=== PATIENT | male | born 1935 | race African-American/Black ===

== ENCOUNTER 2017-07-13 08:36 | Inpatient (IN) | payer MEDICARE ==
[~2017-07-13] VITALS: Ht 170.2 cm; Wt 98.2 kg
[2017-07-13 09:02] LABS: BASOPHILS 0.1 % (0-2); EOSINOPHILS 0.1 % (0-7); HEMATOCRIT 44.9 % (42.0-54.0); HEMOGLOBIN 13.9 g/dL (13.5-17.5); IMMATURE GRANULOCYTES 0.2 % (0-5); LYMPHOCYTES 9.1 % (15-50); MCH 29.2 pg (26.0-34.0); MCV 94.3 fL (80.0-100.0); MEAN PLATELET VOLUME 12.4 fL (7.4-10.4); MONOCYTES 11.9 % (2-11); NEUTROPHILS 78.6 % (40-80); RBC 4.76 10x6/uL (4.20-6.10); RDW 12.9 % (11.5-14.5)
[2017-07-13 09:03] LABS: PLATELET COUNT 144 10x3/uL (130-400)
[2017-07-13 09:15] LABS: ALBUMIN 3.7 g/dL (3.4-5.0); ALKALINE PHOSPHATASE 79 U/L (46-116); ALT (SGPT) 67 U/L (10-68); BILIRUBIN - TOTAL 1.26 mg/dL (0.2-1.3); CALC OSMOLALITY 285 mosm/kg (275-300); CALCIUM 8.3 mg/dL (8.5-10.1); CARBON DIOXIDE 29.3 mmol/L (21.0-32.0); CHLORIDE - SERUM 103 mmol/L (98-107); GLUCOSE 177 mg/dL (74-106); POTASSIUM - SERUM 3.3 mmol/L (3.5-5.1); PROTEIN - SERUM 7.1 g/dL (6.4-8.2); SODIUM 141 mmol/L (136-145); UREA NITROGEN 15 mg/dL (7-18); eGFR NON AFRICAN AMERICAN 83 mL/min (90-120)
[2017-07-13 09:41] LABS: CKMB 2.8 U/L (0.0-3.6); CREATINE KINASE 154 UL (21-232); PRO BNP 3987 pg/mL (0-125); TROPONIN-I 0.041 ng/mL (0.000-0.060)
--- NOTE | 2017-07-13 13:05 | NUR ---
RECEIVED PT FROM ER TO ROOM 2128 VIA W/C AAOX4 RESP UNLABORED O2 ON 4LPM NC SKIN W/D COLOR WNL TELEMETRY APPLIED SR WITH PVCs RATE 80 NAD NOTED
[2017-07-13 13:17] VITALS: BP 150/69; Ht 170.2 cm; Wt 98.2 kg
[2017-07-13] MEDS ORDERED: COREG6.25 MG PO (13:36)
[2017-07-13] MEDS ORDERED: IBUPROFEN600 MG PO (13:37)
[2017-07-13 16:12] VITALS: BP 116/66
--- NOTE | 2017-07-13 19:45 | NUR ---
PT RESTING IN BEDSIDE CHAIR. ALERT/ORIENTED. PIV SALINE LOCKED TO RIGHT HAND. DENIES PAIN OR DISCOMFORT. O2 @ 4L/NC. SR PER TELEMETRY. PEN TESTER STATES PT JUST HAD A 4 BEAT RUN OF VTACH. ASSESSED PT AND WILL MONITOR.
[2017-07-13 21:46] VITALS: BP 113/59
--- NOTE | 2017-07-13 21:55 | NUR ---
BEDTIME MEDS GIVEN. PT SITTING UP IN CHAIR. NO NEEDS. CALL LIGHT IN REACH.
[2017-07-14] VITALS: BP 108/64
--- NOTE | 2017-07-14 02:14 | NUR ---
PT RESTING IN BED WITH EYES CLOSED. RESPS EVEN/NONLABORED WITH O2 @ 4LNC. CALL LIGHT IN REACH.
[2017-07-14 03:25] LABS: BASOPHILS 0.1 % (0-2); EOSINOPHILS 0 % (0-7); HEMATOCRIT 40.6 % (42.0-54.0); HEMOGLOBIN 12.7 g/dL (13.5-17.5); IMMATURE GRANULOCYTES 0.3 % (0-5); MCH 29.1 pg (26.0-34.0); MCHC 31.3 g/dL (31.0-37.0); MCV 92.9 fL (80.0-100.0); MEAN PLATELET VOLUME 13.1 fL (7.4-10.4); MONOCYTES 11.9 % (2-11); NEUTROPHILS 77.7 % (40-80); PLATELET COUNT 130 10x3/uL (130-400); RBC 4.37 10x6/uL (4.20-6.10); RDW 12.7 % (11.5-14.5); WBC 10.7 10x3/uL (4.8-10.8)
[2017-07-14 03:59] LABS: CALC OSMOLALITY 282 mosm/kg (275-300); CALCIUM 7.9 mg/dL (8.5-10.1); CARBON DIOXIDE 32.8 mmol/L (21.0-32.0); CHLORIDE - SERUM 103 mmol/L (98-107); GLUCOSE 137 mg/dL (74-106); MAGNESIUM - SERUM 1.9 mg/dL (1.8-2.4); POTASSIUM - SERUM 3.4 mmol/L (3.5-5.1); SODIUM 140 mmol/L (136-145); UREA NITROGEN 19 mg/dL (7-18); eGFR NON AFRICAN AMERICAN 76 mL/min (90-120)
[2017-07-14 05:33] VITALS: BP 128/70
--- NOTE | 2017-07-14 07:31 | NUR ---
PATIENT IS IN BED RESTING AT THIS TIME. O2 AT 4L PER NASAL CANNULA. NO SIGNS OR SYMPTOMS OF DISTRESS OR DISCOMFORT ARE NOTED. CALL LIGHT AND WATER ARE WITHIN REACH.
[2017-07-14 08:52] VITALS: BP 126/73
--- NOTE | 2017-07-14 09:52 | NUR ---
RESTS WITH EYES CLOSED. RESP UL ON . IV PATENT. CALL LIGHT IN REACH. WILL CONT. PLAN OF CARE.
[2017-07-14 12:39] VITALS: BP 128/88
[2017-07-14 16:27] VITALS: BP 128/79
--- NOTE | 2017-07-14 17:57 | NUR ---
PATIENT IN BED RESTING AT THIS TIME. NO COMPLAINTS OR CONCERNS ARE VOICED AT THIS TIME. PATIENT SINUS RHYTHM ON TELEMETRY WITH RATE OF 76 BPM. RESPIRATIONS EQUAL AND NON-LABORED. NO SIGNS OF DISTRESS OR DISCOMFORT NOTED AT THIS TIME.
--- NOTE | 2017-07-14 19:35 | NUR ---
ASSESSMENT COMPLETE, PT A&O, SITTING UP IN CHAIR. IV TO RIGHT HAND SL, SITE CLEAN AND DRY. PT DENIES PAIN OR NEEDS, CL IN REACH, WILL CONT TO MONITOR.
[2017-07-14 21:22] VITALS: BP 131/73
--- NOTE | 2017-07-14 21:38 | NUR ---
HS MEDS GIVEN WITH FRESH ICE WATER, PT DENIES PAIN OR NEEDS, CL IN REACH.
[2017-07-15 02:14] VITALS: BP 111/74
[2017-07-15 05:33] LABS: BASOPHILS 0.1 % (0-2); HEMATOCRIT 46.3 % (42.0-54.0); HEMOGLOBIN 14.1 g/dL (13.5-17.5); IMMATURE GRANULOCYTES 0.1 % (0-5); LYMPHOCYTES 23.3 % (15-50); MCH 28.9 pg (26.0-34.0); MCHC 30.5 g/dL (31.0-37.0); MEAN PLATELET VOLUME 12.5 fL (7.4-10.4); MONOCYTES 13.5 % (2-11); PLATELET COUNT 136 10x3/uL (130-400); RBC 4.88 10x6/uL (4.20-6.10)
[2017-07-15 05:54] LABS: ANION GAP 7.2 mmol/L (8-16); CALCIUM 8.3 mg/dL (8.5-10.1); CARBON DIOXIDE 36.1 mmol/L (21.0-32.0); CREATININE - SERUM 1.1 mg/dL (0.6-1.3); MAGNESIUM - SERUM 1.8 mg/dL (1.8-2.4); PHOSPHOROUS 4.1 mg/dL (2.5-4.9)
[2017-07-15 05:55] VITALS: BP 141/85
[2017-07-15 05:55] LABS: MCV 94.9 fL (80.0-100.0); WBC 7.9 10x3/uL (4.8-10.8)
[2017-07-15 06:02] LABS: POTASSIUM - SERUM 3.3 mmol/L (3.5-5.1)
--- NOTE | 2017-07-15 08:56 | NUR ---
AM ROUNDS - PT IS IN BED AND AWAKE AT THIS TIME. MONITOR SHOWING SB, HR 58. O2 AT 4L VIA NC. IV TO RIGHT HAND, SL. PT IS A&O. BED AT LOWEST POSITION. CALL AQUINO IN USE/REACH. SIDE RAILS UP X2. WILL CONTINUE TO MONITOR
[2017-07-15 09:48] VITALS: BP 118/54
[2017-07-15 12:26] VITALS: BP 139/82
--- NOTE | 2017-07-15 18:10 | NUR ---
PT SITTING UP IN A CHAIR AT THIS TIME. NO NEEDS. WILL CONTINUE TO MONITOR
[2017-07-15 21:50] VITALS: BP 156/86
--- NOTE | 2017-07-15 23:08 | NUR ---
PATIENT IS UP IN CHAIR, DRINKING COFFEE AND WATCHING TV. HE HAS HAD SOME LOOSE STOOLS TODAY. URINE IN URINAL IS CLEAR YELLOW. DENIES ANY PAIN AT THIS TIME.
[2017-07-16 00:20] VITALS: BP 133/76
--- NOTE | 2017-07-16 02:53 | NUR ---
PT RESTING COMFORTABLY, NO NEEDS. CONTINUE TO MONITOR CLOSELY.
--- NOTE | 2017-07-16 03:17 | NUR ---
RESTING QUIETLY. OXYGEN IN PLACE . LASIX ADMINISTERED THROUGH IN IN RIGHT HAND. IV SALINE LOCKED. DENIES ANY PAIN AT THIS TIME. BED IN LOW POSITION, CALL LIGHT IN REACH.
[2017-07-16 04:33] VITALS: BP 136/68
[2017-07-16 05:25] LABS: BASOPHILS 0.3 % (0-2); EOSINOPHILS 1.9 % (0-7); HEMATOCRIT 45.4 % (42.0-54.0); HEMOGLOBIN 13.9 g/dL (13.5-17.5); IMMATURE GRANULOCYTES 0.2 % (0-5); LYMPHOCYTES 28.3 % (15-50); MCHC 30.6 g/dL (31.0-37.0); MCV 94.6 fL (80.0-100.0); MEAN PLATELET VOLUME 12.8 fL (7.4-10.4); MONOCYTES 14.9 % (2-11); NEUTROPHILS 54.4 % (40-80); PLATELET COUNT 116 10x3/uL (130-400); RDW 12.8 % (11.5-14.5)
[2017-07-16 05:34] LABS: WBC 5.8 10x3/uL (4.8-10.8)
[2017-07-16 05:55] LABS: CALC OSMOLALITY 286 mosm/kg (275-300); CALCIUM 8.7 mg/dL (8.5-10.1); CARBON DIOXIDE 35.3 mmol/L (21.0-32.0); CHLORIDE - SERUM 102 mmol/L (98-107); CREATININE - SERUM 0.9 mg/dL (0.6-1.3); GLUCOSE 113 mg/dL (74-106); MAGNESIUM - SERUM 1.9 mg/dL (1.8-2.4); SODIUM 143 mmol/L (136-145); UREA NITROGEN 15 mg/dL (7-18); eGFR NON AFRICAN AMERICAN 86 mL/min (90-120)
[2017-07-16 08:21] VITALS: BP 126/77
--- NOTE | 2017-07-16 09:45 | NUR ---
UP IN CHAIR WITH CALL LIGHT IN REACH. RESP UL . IV PATENT. WILL MONITOR NEEDS.
--- NOTE | 2017-07-16 10:24 | NUR ---
ASSESSMENT DONE. DENIES NEEDS.
[2017-07-16 11:34] VITALS: BP 128/71
[2017-07-16] MEDS ORDERED: LISINOPRIL10 MG PO (11:54)
[2017-07-16] MEDS ORDERED: OMNICEF300 MG PO (11:56)
[2017-07-16] MEDS ORDERED: ALBUTEROL2.5 MG/3 M INH (14:44)
--- NOTE | 2017-07-16 16:33 | NUR ---
Patient Name: ERICA MEYERS Admission Status: ER Accout number: [id number] Admission Date: 07-13-2017 : 1935 Admission Diagnosis:SHORTNESS OF BREATH Attending: ROSALIND FLORES Current LOS: 3 Anticipated DC Date: 07-16-2017 Planned Disposition: Home Primary Insurance: MEDICARE A & B Discharge Planning Comments: * Is the patient Alert and Oriented? Yes 0 * How many steps to enter\exit or inside your home? 3 0 * PCP DR. SANIA [place] 0 * [facility] * Preadmission Environment Home with Family 0 * ADLs Independent 0 * Equipment Rolling Walker 0 * Other Equipment NO MEDICAL EQUIPMENT PROVIDER PREFERENCE 0 * List name and contact numbers for known caregivers / representatives who currently or will assist patient after discharge: ALDAIR PEÑA, SISTER, 0 * Community resources currently utilized None 0 * Please name any agencies selected above. NONE 0 * Additional services required to return to the preadmission environment? No 0 * Can the patient safely return to the preadmission environment? Yes 0 * Has this patient been hospitalized within the prior 30 days at any hospital? No 0 CM MET WITH PT AND SISTER IN ROOM TO DISCUSS DISCHARGE PLANNING AND NEEDS. PT REPORTS LIVING AT HOME INDEPENDENTLY WITH A FRIEND. PT HAS ROLLING WALKER WITH NO MEDICAL EQUIPMENT PROVIDER PREFERENCE. PT PAS NO OUTSIDE SERVICES ASSISTING IN THE HOME. CM DISCUSSED AVAILABILITY OF HOME HEALTH, REHAB SERVICES AND MEDICAL EQUIPMENT. PT DENIES DISCHARGE NEEDS, REPORTS HIS SISTER IS HERE TO PICK HIM UP FOR DISCHARGE HOME. IMPORTANT MESSAGE FROM MEDICARE PROVIDED AND EXPLAINED. PT HAS NO PROVIDER PREFERENCE FOR THE NEBULIZER; CM CALLED [facility], , SPOKE TO DANIEL WHO WILL ARRANGE HOME DELIVERY OF NEBLUIZER AFTER GETTING DETAILED WRITTEN ORDER SIGNED BY DR. MONET. CM FAXED ORDER AND CHART INFORMATION TO [facility] AT [phone]. CM SPOKE TO RESPIRATORY THERAPIST WHO REPORTS THAT PT IS 95% ON ROOM AIR AND DOES NOT QUALIFY FOR HOME / PORTABLE OXYGEN. [facility] TO ARRANGE HOME DELIVERY OF NEBULIZER. NO FURHTER NEEDS IDENTIFIED. Flame Cutting Machine Operator: Zackery Chandler
--- NOTE | 2017-07-16 17:21 | NUR ---
DC GIVEN TO PT
--- NOTE | 2017-07-16 18:30 | NUR ---
DC HOME PER PERSONAL CAR
--- NOTE | 2017-07-22 12:15 | CN ---
PATIENT NAME:ERICA MEYERS SR MEDICAL RECORD: [id number] : 37 LOCATION:D. D.2129 ADMIT DATE: 07/13/17 ACCOUNT: [id number] CONSULTING PHYSICIAN: LINUS NIETO MD REFERRING PHYSICIAN: ROSALIND FLORES DO DATE OF CONSULTATION: 07/16/2017 DIAGNOSES: 1. Pneumonia. 2. Cardiomyopathy. 3. Heart failure. 4. Chronic systolic dysfunction. 5. Hypertension. HISTORY OF PRESENT ILLNESS: This is a gentleman who states that he has had no previous cardiac history, seen Dr. Sim and he does not remember exactly what she told him about his heart. This was approximately 6 months ago. He presents with shortness of breath, found to have right upper lobe pneumonia. He had an echocardiogram revealing an ejection fraction 20%, dilated cardiomyopathy, no discrete wall motion abnormalities, global hypokinesis throughout all segments. He denies any heart failure symptomatology prior to being short of breath with the pneumonia. Denies any chest pain or chest discomfort. He has had no cardiac workup in the past other than the visit to Dr. Sim. PHYSICAL EXAMINATION: GENERAL APPEARANCE: Well-nourished, well-developed, appears stated age. Level of distress, comfortable. PSYCHIATRIC: Mental status, alert, normal affect. Orientation, oriented to time, place and person. EYES: Lids and conjunctiva, noninjected. No discharge, no pallor. ENT: Lips, teeth, gums, normal dentition. Oropharynx, no cyanosis, no pallor. NECK: Carotid arteries, bilateral normal upstroke, no bruits, no thrills. JUGULAR VEINS: No jugular venous pressure or distention. CERVICAL LYMPH NODES: Nontender, nonenlarged. THYROID: Not enlarged. Nontender. No nodules. LUNGS: Respiratory effort, unlabored. CHEST: Normal curvature. No thoracic deformity. No chest wall tenderness. Percussion, resonant. Auscultation, clear. No wheezes, no rales, no rhonchi. CARDIOVASCULAR: Precordial exam, nondisplaced. No heaves or pericardial thrills. Rate and rhythm, regular. Heart sounds, normal S1, normal S2. No S3, no gallop, no rub. Systolic murmur, not heard. Diastolic murmur, not heard. EXTREMITIES: No cyanosis, no edema. Peripheral pulses, full and equal in all extremities, except as noted. No bruits appreciated. ABDOMEN: Soft, nondistended. Normal aorta. No bruit. Nontender. No masses. Liver, nontender, no hepatomegaly. Spleen, nontender, no splenomegaly. MUSCULOSKELETAL: No joint tenderness. No joint swelling. No erythema. NEUROLOGICAL: Normal gait, normal strength, normal tone. SKIN: Warm and dry. REVIEW OF SYSTEMS: The patient reports easy bruising but reports no swollen glands. The patient reports no fever, no night sweats, no significant weight gain, no significant weight loss. No significant exercise tolerance. The patient reports no dry eyes, no irritation, no vision change. Patient reports no difficulty hearing and no ear pain. Patient reports no frequent nose bleeds CONSULT REPORT [id number] ERICA MEYERS SR or nose and sinus problems. Patient reports on arm pain on exertion. No shortness of breath while lying down. No history of heart murmur. Patient reports no cough, no wheezing or coughing up blood. Patient reports no abdominal pain, no vomiting. Normal appetite. No diarrhea and not vomiting blood. No nausea and no constipation. Patient reports no incontinence. No difficulty urinating. No hematuria. No increased frequency. Patient reports no muscle aches. No weakness, no arthralgias, no back pain. No swelling of the extremities. Patient reports no abnormal mole, no jaundice, no rashes. Reports no loss of consciousness. No weakness and no numbness. No seizures, dizziness, or headaches. The patient reports no depression, no sleep disturbance, feeling safe in a relationship and no alcohol abuse. Patient reports on fatigue. Reports no runny nose or sinus pressure. No itching, no hives, and no frequent sneezing. The EKG has widened QRS complex, but no acute ST-T abnormalities. Telemetry has revealed no dysrhythmias. Other than the bradycardia, he was on carvedilol for his blood pressure. At this time, this is on hold due to the bradycardia. OVERALL IMPRESSION: Cardiomyopathy. He does not want a workup at this time for the cardiomyopathy. He only wants to go home. We will make a followup as an outpatient, we would discontinue the carvedilol as he is sinus pia down to the 40s. We will start lisinopril [address] of it for afterload reduction. He is already on Lasix, would change this from IV to p.o. when he goes home. We will see if he follows up for any further workup. TRANSINT:[id number] Voice Confirmation ID: [id number] DOCUMENT ID: [id number] LINUS NIETO MD at 1215 CC: [id number] DICTATION DATE: 07/16/17 0854 WHEAT GROWER: 07/16/17 1201 DIS IN 07/16/17 [place] [id number] [place] [id number]
--- NOTE | 2017-08-07 14:06 | CN ---
PATIENT NAME:ERICA MARTIN SR MEDICAL RECORD: [id number] : 37 LOCATION:. D.2129 ADMIT DATE: 07/13/17 ACCOUNT: [id number] CONSULTING PHYSICIAN: INGE NAVARRO MD REFERRING PHYSICIAN: ZACKARY FLORES DO DATE OF CONSULTATION: 07/13/2017 CONSULT REQUESTING PHYSICIAN: Zackary Flores DO REASON FOR CONSULTATION: Pneumonia, right upper lobe. HISTORY OF PRESENT ILLNESS: Mr. Martin is an 81-year-old gentleman who is sick for the last few days. He is coughing. He has shortness of breath with mild exertion. Denies any fevers or chills. No night sweats. He also has some swelling of the lower extremity. The patient was brought into the ER. On evaluation, it was found out that he has infiltrate in right upper lobe as well as his proBNP was high. The patient denies any dysphagia. No swallowing problems. REVIEW OF THE SYSTEMS: Mainly in the history of present illness. PAST MEDICAL HISTORY: Hypertension and possible congestive heart failure. PAST SURGICAL HISTORY: Nonsignificant. ALLERGIES: There are no known drug allergies. HOME MEDICATIONS: He is on Coreg 6.25 mg two times a day. PERSONAL AND SOCIAL HISTORY: The patient never smoked and nondrinker. FAMILY HISTORY: Noncontributory. PHYSICAL EXAMINATION: GENERAL: Now, the patient is lying comfortably. He is not in acute distress. VITAL SIGNS: On arrival to the ER, his blood pressure is 172/111, temperature is 97.6, and SpO2 is 84% on room air. HEENT: Conjunctivae are pink. Sclerae nonicteric. NECK: Supple. No JVD. CHEST: There are crackles at the right apex. No wheeze. HEART: Rhythm regular. Normal sounds. No murmur. ABDOMEN: Soft. Bowel sounds present. No hepatosplenomegaly. RECTAL: Deferred. EXTREMITIES: No cyanosis. No clubbing. There is 2+ pedal edema. SKIN: The skin is warm. Normal turgor. CENTRAL NERVOUS SYSTEM: The patient is awake and alert. There is no obvious cranial nerve abnormality. The gait was not tested. LABORATORY DATA: CBC; WBC 8000, hemoglobin 13.9, hematocrit 44.9, and platelet count 144. Chemistry; sodium 141, potassium 3.3, BUN is 15, and creatinine is 1. The proBNP is 3987. CHEST RADIOGRAPH: There is infiltrate in right upper lobe. IMPRESSION: CONSULT REPORT [id number] ERICA MARTIN SR 1. Acute hypoxic respiratory failure and pneumonia, right upper lobe, most likely community-acquired pneumonia. 2. Congestive heart failure, possible diastolic dysfunction. 3. Hypokalemia. 4. History of hypertension. RECOMMENDATION: 1. Start him on Lasix, Rocephin and Zithromax IV, and albuterol/ipratropium nebulizer. 2. Potassium replacement. We will follow the electrolyte replacement protocol. 3. Followup labs and chest radiograph. 4. Antitussive. Dr. Flores, thank you for involving me in the care of Mr. Martin. TRANSINT:[id number] Voice Confirmation ID: [id number] DOCUMENT ID: [id number] INGE NAVARRO MD at 1406 CC: ZACKARY FLORES DO [id number] DICTATION DATE: 07/13/17 1500 OVEN HEATER: 07/13/171916 DIS IN 07/16/17 [facility] [address] [place] [address]
== END 2017-07-16 18:31 | disposition home or self-care (01) | DRG 177 ==
LOC: EDBD 08:36 → D.ER 08:36 → D.M2 11:14
PROVIDERS: Family Medicine; Internal Medicine Pulmonary Disease; ADMIT Family Medicine
DX: J15.6 Pneumonia due to other Gram-negative bacteria (principal); J96.01 Acute respiratory failure with hypoxia; I50.23 Acute on chronic systolic (congestive) heart failure; I42.9 Cardiomyopathy, unspecified; J13 Pneumonia due to Streptococcus pneumoniae; I11.0 Hypertensive heart disease with heart failure; E87.6 Hypokalemia; I08.3 Combined rheumatic disorders of mitral, aortic and tricuspid valves; I27.20 Pulmonary hypertension, unspecified

== ENCOUNTER → 2017-11-03 09:54 | Outpatient (CLI) | payer MEDICARE, OTHER ==
[2017-07-13 13:17] VITALS: BMI 34.1
[~2017-11-03 09:54] MED LIST: ALBUTEROL2.5 MG/3 M INH; COREG6.25 MG PO; IBUPROFEN600 MG PO; LISINOPRIL10 MG PO; OMNICEF300 MG PO
[2017-11-04 11:22] LABS: ANA REFLEX - DIRECT Negative (Negative)
[2017-11-07 12:15] LABS: IMMUNOGLOBULIN E 1779 IU/mL (0-100)
== END | disposition home or self-care (01) ==
LOC: D.RT 09:54
PROVIDERS: Internal Medicine Pulmonary Disease
DX: J45.909 Unspecified asthma, uncomplicated (principal)

== ENCOUNTER → 2018-11-03 09:18 | Outpatient (CLI) | payer MEDICARE, OTHER ==
[2017-07-13 13:17] VITALS: BMI 34.1
== END | disposition home or self-care (01) ==
LOC: D.RT 09:18
PROVIDERS: ATTEND Internal Medicine Pulmonary Disease
DX: J44.9 Chronic obstructive pulmonary disease, unspecified (principal)

== ENCOUNTER → 2018-12-01 12:50 | Outpatient (CLI) | payer MEDICARE, OTHER ==
[2017-07-13 13:17] VITALS: BMI 34.1
== END | disposition home or self-care (01) ==
LOC: D.HCCARDIO 11-19 09:30
PROVIDERS: ATTEND Internal Medicine Cardiovascular Disease
DX: I42.9 Cardiomyopathy, unspecified (principal)

== ENCOUNTER → 2020-02-29 13:18 | Outpatient (CLI) | payer MEDICARE ==
[2017-07-13 13:17] VITALS: BMI 34.1
== END | disposition home or self-care (01) ==
LOC: D.HCCECHO 13:18
PROVIDERS: ATTEND Internal Medicine Cardiovascular Disease
DX: I25.10 Atherosclerotic heart disease of native coronary artery without angina pectoris (principal)

== ENCOUNTER → 2020-04-25 15:21 | Outpatient (CLI) | payer OTHER ==
[2017-07-13 13:17] VITALS: BMI 34.1
== END | disposition home or self-care (01) ==
LOC: D.RAD 15:21
PROVIDERS: ATTEND Internal Medicine Pulmonary Disease
DX: J45.909 Unspecified asthma, uncomplicated (principal)

== ENCOUNTER 2020-05-03 11:29 | Inpatient (IN) | payer OTHER ==
[~2020-05-03] VITALS: Ht 170.2 cm; Wt 89.6 kg
--- NOTE | 2020-05-03 11:57 | NUR ---
INITIAL O2 SATS 77-78 % ON RA. O2 PLACED @ 3 L PNC AND IMPROVED TO 94-95 %
[2020-05-03 13:23] LABS: BASOPHILS 0.7 % (0-2); EOSINOPHILS 0.7 % (0-7); HEMATOCRIT 37.4 % (42.0-54.0); HEMOGLOBIN 10.2 g/dL (13.5-17.5); LYMPHOCYTES 24.1 % (15-50); MCH 21.8 pg (26.0-34.0); MCHC 27.3 g/dL (31.0-37.0); MCV 80.1 fL (80.0-100.0); MONOCYTES 18.2 % (2-11); NEUTROPHILS 56.3 % (40-80); PLATELET COUNT 113 10x3/uL (130-400); RBC 4.67 10x6/uL (4.20-6.10); RDW 21.4 % (11.5-14.5); WBC 3.1 10x3/uL (4.8-10.8)
[2020-05-03 13:25] LABS: APTT 29.2 SECONDS (22.8-39.4); INR 1.15 (0.85-1.17); PROTIME 14.6 SECONDS (11.6-15.0)
[2020-05-03 13:26] LABS: CALC OSMOLALITY 290 mosm/kg (275-300); CALCIUM 8.5 mg/dL (8.5-10.1); CARBON DIOXIDE 36.4 mmol/L (21.0-32.0); CHLORIDE - SERUM 109 mmol/L (98-107); CREATININE - SERUM 0.9 mg/dL (0.6-1.3); GLUCOSE 120 mg/dL (74-106); POTASSIUM - SERUM 3.8 mmol/L (3.5-5.1); SODIUM 145 mmol/L (136-145); UREA NITROGEN 14 mg/dL (7-18); eGFR NON AFRICAN AMERICAN 85 mL/min (90-120)
[2020-05-03 13:40] LABS: ALBUMIN 3.2 g/dL (3.4-5.0); ALKALINE PHOSPHATASE 58 U/L (30-120); ALT (SGPT) 18 U/L (10-68); BILIRUBIN - TOTAL 0.64 mg/dL (0.2-1.3); CKMB 1.3 U/L (0.0-3.6); CREATINE KINASE 46 UL (21-232); PRO BNP 10512 pg/mL (0-450); PROTEIN - SERUM 6.3 g/dL (6.4-8.2); TROPONIN-I 0.042 ng/mL (0.000-0.060)
[2020-05-03 15:06] VITALS: BP 175/115
[2020-05-03] MEDS ORDERED: COREG25 MG PO (16:03)
[2020-05-03 17:21] VITALS: BP 169/82
--- NOTE | 2020-05-03 18:01 | NUR ---
RECEIVE REPORT FROM CEFERINO CODY IN ED. STATES PATIENT HAS 20 GUAGE LEFT AC WITH NS AT KVO. DOBUTAMINE WAS NOT GIVEN DUE TO HIGH BLOOD PRESSURE.
[2020-05-03 18:16] VITALS: BP 157/73
--- NOTE | 2020-05-03 18:19 | NUR ---
ARRIVED TO UNIT VIA WHEELCHAIR. REMAINS FREE FROM HARM. VITAL SIGNS 157/73, 51, 20, 98.7, 95% ON 4L NC. DENIES ANY NEEDS AT THIS TIME. WILL CONTINUE PLAN OF CARE AND SAFETY PRECAUTIONS. QUICK START DONE.
--- NOTE | 2020-05-03 19:07 | NUR ---
PAGED CARDIOLOGY FOR DOBUTAMINE DRIP THAT WAS NOT STARTED IN ED. CEFERINO CODY SAID IT WAS NOT STARTED PER RUBEN MERCADO.
--- NOTE | 2020-05-03 19:11 | NUR ---
TALKED WITH ROGELIO FROM CARDIOLOGY ABOUT DOBUTAMINE DRIP. TOLD TO START DRIP THAT WAS DUE AT 1600. IF PRESSURE GETS > 160 PRN HYDRALAZINE. CEFERINO ROQUE WILL START DRIP.
[2020-05-03] MEDS ORDERED: FERROUS SULFAT325 MG PO (20:47)
[2020-05-03] MEDS ORDERED: SINGULAIR10 MG PO (20:48)
[2020-05-03] MEDS ORDERED: LASIX20 MG (20:49)
[2020-05-03] MEDS ORDERED: LIPITOR20 MG PO (20:49)
[2020-05-03] MEDS ORDERED: SYMBICORT 16010.2 GM INH (20:49)
[2020-05-04] VITALS (7 sets, daily range): BP systolic 123–176; BP diastolic 68–97; Ht 170.2 cm; Wt 89.6 kg
--- NOTE | 2020-05-04 00:39 | HP ---
PATIENT: ERICA MEYERS MEDICAL RECORD: [id number] ACCOUNT: [id number] LOCATION:[address] : [birth year] ADMISSION DATE: 05/03/20 PCP: HEIDY CORTÉS MD HISTORY AND PHYSICAL EXAMINATION DATE OF ADMISSION: 05/03/2020 CHIEF COMPLAINT: Shortness of breath, cough, worsening lower extremity edema over the last 2 weeks. HISTORY OF PRESENT ILLNESS: This is an 84-year-old -Citizen Of [place] male, whose primary care doctor is Dr. Kiko Cortés. He is followed for restrictive lung disease by Dr. Clarke and for chronic systolic congestive heart failure by Dr. Ornelas. He was brought to the Emergency Department for above complaints. In the ED, he had 3 to 4+ edema above his knees. ProBNP was 10,512. Chest x-ray shows stable cardiomegaly, really unchanged from previous chest x-rays. EKG showed sinus bradycardia with left bundle branch block and rate of 46. He is admitted for further care. Cardiology is being consulted. PAST MEDICAL AND SURGICAL HISTORY: Nonischemic cardiomyopathy followed by Dr. Ornelas. Last echo showed an ejection fraction reportedly of 30%. He has a history of restrictive lung disease, osteoarthritis, sinus bradycardia, prostate cancer, history of bullous dermatitis, left ventricular hypertrophy, hypertension, hyperlipidemia and obesity. PAST SURGICAL HISTORY: He denies any surgeries. DRUG ALLERGIES: None known. HOME MEDICATIONS: Include ibuprofen 600 mg every 6 hours p.r.n. pain, iron 325 mg once a day, lisinopril 20 mg twice a day, Singulair 10 mg at bedtime, carvedilol 25 mg twice a day, atorvastatin 20 mg once a day, albuterol via nebulizer every 6 hours p.r.n., albuterol HFA every 4 to 6 hours p.r.n., Symbicort 160/4.5 twice a day, Lasix 20 mg as needed for swelling. HABITS: No tobacco, alcohol or drugs. SOCIAL HISTORY: He is retired. FAMILY HISTORY: Father in his 80s. He had Alzheimer's dementia. Mother in her 70s. REVIEW OF SYSTEMS: GENERAL: No major weight changes. HEENT: No particular sinus or allergy problems. RESPIRATORY: Has history of restrictive lung disease and possible COPD followed by Dr. Clarke. CARDIAC: Nonischemic cardiomyopathy followed by Dr. Ornelas. GASTROINTESTINAL: No significant heartburn. GENITOURINARY: No significant problems there. MUSCULOSKELETAL: He has osteoarthritic aches and pains. NEUROLOGIC: No seizures or migraines. PSYCHIATRIC: Denies depression or melancholia. PHYSICAL EXAMINATION: HISTORY AND PHYSICAL [id number] ERICA MEYERS VITAL SIGNS: Temperature 98.8, heart rate 51, respirations 20, blood pressure 157/73, O2 sat 95%. GENERAL: He is pleasant, awake, alert, does not appear in acute distress. HEENT: Grossly within normal limits. NECK: Supple. No JVD or bruit. HEART: Bradycardic. No murmur. LUNGS: With decreased breath sounds in the bases bilaterally. ABDOMEN: Soft, nontender. EXTREMITIES: Showed 4+ edema above the knees. LABORATORY DATA: ABG, pH 7.35, pCO2 60, pO2 86, O2 sat 95%. CBC with a white count of 3100, hemoglobin 10.2, hematocrit 37.5, platelets number 113,000. Basic metabolic panel; sodium 145, potassium 3.8, chloride 109, CO2 36.4, BUN 14, creatinine 0.9, glucose 120, calcium 8.5. Liver functions are normal. INR 1.15. ProBNP 10,512. EKG, sinus pia, left bundle branch, rate 46. Chest x-ray, stable cardiomegaly. ASSESSMENT: 1. [id number] systolic congestive heart failure. 2. Hypertensive urgency. PLAN: Cardiology has been consulted. We will diurese. He will start dobutamine. Other tests and procedures as warranted. TRANSINT:[id number] Voice Confirmation ID: [id number] DOCUMENT ID: [id number] JANES PADILLA MD at 0039 CC: [id number] DICTATION DATE: 05/03/202057 SAFETY GLASS INSTALLER: 05/03/202254 ADM IN [place] [address] [place] [address]
[2020-05-04 07:10] LABS: BASOPHILS 0.6 % (0-2); EOSINOPHILS 1.5 % (0-7); IMMATURE GRANULOCYTES 0.3 % (0-5); LYMPHOCYTES 24.6 % (15-50); MCH 21.3 pg (26.0-34.0); MCV 78.7 fL (80.0-100.0); MONOCYTES 19.5 % (2-11); NEUTROPHILS 53.5 % (40-80); PLATELET COUNT 112 10x3/uL (130-400); RDW 21.5 % (11.5-14.5); WBC 3.3 10x3/uL (4.8-10.8)
[2020-05-04 07:49] LABS: ALKALINE PHOSPHATASE 53 U/L (30-120); ALT (SGPT) 18 U/L (10-68); BILIRUBIN - TOTAL 0.81 mg/dL (0.2-1.3); CALC OSMOLALITY 283 mosm/kg (275-300); CALCIUM 8.6 mg/dL (8.5-10.1); CARBON DIOXIDE 38.2 mmol/L (21.0-32.0); CHLORIDE - SERUM 104 mmol/L (98-107); CREATININE - SERUM 0.9 mg/dL (0.6-1.3); GLUCOSE 104 mg/dL (74-106); SODIUM 143 mmol/L (136-145); UREA NITROGEN 11 mg/dL (7-18); eGFR NON AFRICAN AMERICAN 85 mL/min (90-120)
[2020-05-04 07:51] LABS: POTASSIUM - SERUM 3.2 mmol/L (3.5-5.1)
--- NOTE | 2020-05-04 09:18 | NUR ---
PT WEIGHT ON STANDING SCALE 218.6 LBS.
--- NOTE | 2020-05-04 12:44 | NUR ---
PT UP TO BATHROOM AND PULLED OUT IV. NEW RESITED TO LEFT AC.
--- NOTE | 2020-05-04 19:30 | NUR ---
PT IN BED, AAO X 2, RESP EVEN AND UNLABORED, NO DISTRESS NOTED, CL IN REACH, SR UP X 2.
[2020-05-05 00:32] VITALS: BP 174/90
[2020-05-05 04:30] VITALS: BP 165/93
[2020-05-05 08:38] VITALS: BP 171/85
--- NOTE | 2020-05-05 09:28 | NUR ---
DOBUTAMINE DRIP STOPPED PER ORDER.
[2020-05-05 10:49] LABS: BASOPHILS 0.2 % (0-2); EOSINOPHILS 1.2 % (0-7); HEMATOCRIT 41.8 % (42.0-54.0); HEMOGLOBIN 11.8 g/dL (13.5-17.5); IMMATURE GRANULOCYTES 0.2 % (0-5); LYMPHOCYTES 17.1 % (15-50); MCH 21.9 pg (26.0-34.0); MCHC 28.2 g/dL (31.0-37.0); MCV 77.4 fL (80.0-100.0); MONOCYTES 16.1 % (2-11); NEUTROPHILS 65.2 % (40-80); PLATELET COUNT 115 10x3/uL (130-400); RDW 21.4 % (11.5-14.5)
[2020-05-05 10:50] LABS: CALCIUM 9.2 mg/dL (8.5-10.1); CREATININE - SERUM 1.1 mg/dL (0.6-1.3)
[2020-05-05 10:53] LABS: WBC 4.9 10x3/uL (4.8-10.8)
[2020-05-05 10:54] LABS: ANION GAP 4.9 mmol/L (8-16); POTASSIUM - SERUM 2.9 mmol/L (3.5-5.1)
[2020-05-05 17:18] VITALS: BP 152/85
--- NOTE | 2020-05-06 00:44 | NUR ---
PT IN BED, RESP EVEN AND UNLABORED, NO DISTRESS NOTED, CL IN REACH, SR UP X 2.
--- NOTE | 2020-05-06 03:55 | NUR ---
I have reviewed this patient and I concur with the Shift Assessment completed by the Licensed Practical Nurse today this shift.
[2020-05-06 04:00] VITALS: BP 135/52
[2020-05-06 07:00] VITALS: BP 135/75
[2020-05-06 07:00] LABS: BASOPHILS 0.4 % (0-2); HEMATOCRIT 39.9 % (42.0-54.0); HEMOGLOBIN 11.1 g/dL (13.5-17.5); IMMATURE GRANULOCYTES 0.2 % (0-5); LYMPHOCYTES 25.3 % (15-50); MCH 21.5 pg (26.0-34.0); MCHC 27.8 g/dL (31.0-37.0); MCV 77.3 fL (80.0-100.0); MONOCYTES 19.2 % (2-11); NEUTROPHILS 52.9 % (40-80); PLATELET COUNT 113 10x3/uL (130-400); RBC 5.16 10x6/uL (4.20-6.10); RDW 21.5 % (11.5-14.5)
--- NOTE | 2020-05-06 07:00 | NUR ---
RECEIVED REPORT. ASSUMED CARE OF PATIENT. PATIENT SITTING TO SIDE OF BED. RESP EVEN AND UNLABORED. CALL LIGHT WITHIN REACH. PATIENT DENIES NEEDS. WHITE BOARD UPDATED. BEDSIDE SHIFT REPORT COMPLETE. NO DISTRESS.
[2020-05-06 07:18] LABS: ANION GAP 5.6 mmol/L (8-16); CALCIUM 9.1 mg/dL (8.5-10.1); CREATININE - SERUM 1.1 mg/dL (0.6-1.3); POTASSIUM - SERUM 3.3 mmol/L (3.5-5.1)
[2020-05-06 07:31] LABS: CARBON DIOXIDE 41.7 mmol/L (21.0-32.0)
[2020-05-06 11:00] VITALS: BP 139/79
--- NOTE | 2020-05-06 14:38 | NUR ---
EP INITIATED FOR LOW POTASSIUM AT THIS TIME.
--- NOTE | 2020-05-06 19:48 | NUR ---
RECEIVED REPORT, WILL ASSUME CARE OF PT, 02-4L, IV-20G.-LAC-SL, [id number], PT WATCHING TV, DENIES ANY NEEDS AT THIS TIME, BED IS LOW,,SRX-2, CALL LIGHT IN REACH, WILL CONTINUE PLAN OF CARE
[2020-05-06 21:14] VITALS: BP 135/51
[2020-05-07 00:16] VITALS: BP 136/64
--- NOTE | 2020-05-07 03:37 | NUR ---
I have reviewed this patient and I concur with the Shift Assessment completed by the Licensed Practical Nurse today this shift.
[2020-05-07 04:00] VITALS: BP 138/71
[2020-05-07 06:59] LABS: HEMATOCRIT 38.6 % (42.0-54.0); HEMOGLOBIN 11.1 g/dL (13.5-17.5); MCHC 28.8 g/dL (31.0-37.0); MCV 76.4 fL (80.0-100.0); PLATELET COUNT 91 10x3/uL (130-400); RBC 5.05 10x6/uL (4.20-6.10); RDW 21.3 % (11.5-14.5); WBC 5.2 10x3/uL (4.8-10.8)
--- NOTE | 2020-05-07 07:00 | NUR ---
RECEIVED REPORT. ASSUMED CARE OF PATIENT. CALL LIGHT WITHIN REACH. PATIENT SITTING UP IN BED, ALERT/ORIENTED. WT THIS AM 203.4 LBS. WHITE BOARD UPDATED, BEDSIDE SHIFT REPORT COMPLETE. PATIENT DENIES NEEDS. NO DISTRESS.
[2020-05-07 07:07] LABS: CALC OSMOLALITY 280 mosm/kg (275-300); CARBON DIOXIDE 39.2 mmol/L (21.0-32.0); CHLORIDE - SERUM 97 mmol/L (98-107); GLUCOSE 123 mg/dL (74-106); POTASSIUM - SERUM 3.8 mmol/L (3.5-5.1); SODIUM 139 mmol/L (136-145); UREA NITROGEN 18 mg/dL (7-18); eGFR NON AFRICAN AMERICAN 76 mL/min (90-120)
[2020-05-07 07:18] LABS: EOSINOPHILS 1 % (0-7); LYMPHOCYTES 21 % (15-50); MONOCYTES 5 % (2-11); NEUTROPHILS 73 % (40-80)
[2020-05-07 07:19] LABS: PLATELET ESTIMATE DECREASED
[2020-05-07 08:13] VITALS: BP 132/63
[2020-05-07 11:55] VITALS: BP 114/56
[2020-05-07 16:21] VITALS: BP 125/59
[2020-05-07 18:56] VITALS: BP 125/59
--- NOTE | 2020-05-07 19:30 | NUR ---
RECEIVED REPORT, WILL ASSUME CARE OF PT, 02-4L, IV-20G.-LAC-SL, [id number], DENIES ANY NEEDS AT THIS TIME, BED IS LOW, SRX2, CALL LIGHT IN REACH, WILL CONTINUE PLAN OF CARE
[2020-05-08 03:54] VITALS: BP 107/42
[2020-05-08 06:51] LABS: HEMATOCRIT 35.1 % (42.0-54.0); HEMOGLOBIN 10.1 g/dL (13.5-17.5); MCH 22.2 pg (26.0-34.0); MCHC 28.8 g/dL (31.0-37.0); MCV 77.1 fL (80.0-100.0); PLATELET COUNT 95 10x3/uL (130-400); RBC 4.55 10x6/uL (4.20-6.10); RDW 21.5 % (11.5-14.5); WBC 4.9 10x3/uL (4.8-10.8)
[2020-05-08 07:17] VITALS: BP 116/51
--- NOTE | 2020-05-08 07:20 | NUR ---
PT SITTING UP IN BED. WATCHING TV. PT STATES HE HAS NO FURTHER NEEDS AT THIS TIME. LEFT AC 20G IV SL. O2 AT 2L VIA NC. BED LOW. CL IN REACH. WILL CONTINUE WITH POC.
[2020-05-08 07:41] LABS: CALC OSMOLALITY 282 mosm/kg (275-300); CALCIUM 8.9 mg/dL (8.5-10.1); CARBON DIOXIDE 39.2 mmol/L (21.0-32.0); CHLORIDE - SERUM 96 mmol/L (98-107); CREATININE - SERUM 0.9 mg/dL (0.6-1.3); GLUCOSE 110 mg/dL (74-106); POTASSIUM - SERUM 3.9 mmol/L (3.5-5.1); SODIUM 139 mmol/L (136-145); eGFR NON AFRICAN AMERICAN 85 mL/min (90-120)
[2020-05-08 07:42] LABS: UREA NITROGEN 25 mg/dL (7-18)
[2020-05-08 08:02] VITALS: BP 110/59
[2020-05-08 10:42] LABS: EOSINOPHILS 1 % (0-7); LYMPHOCYTES 24 % (15-50); MONOCYTES 20 % (2-11); NEUTROPHILS 53 % (40-80); PLATELET ESTIMATE DECREASED
[2020-05-08 10:43] LABS: HYPOCHROMASIA OCC; ROULEAUX OCC
--- NOTE | 2020-05-08 11:01 | NUR ---
REFUSED BATH AND LINEN CHANGE.
[2020-05-08 11:19] VITALS: BP 101/50
--- NOTE | 2020-05-08 13:28 | NUR ---
Nutrition Follow-up: Good appetite/PO intake. Ate 100% of breakfast this AM. Also reports drinking ~2 Ensure/day. Denies N/V/C/D. Diet: Cardiac PO intake: 89% avg x 7 meals Wt: 203# (05/07) Last BM: 05/07 Labs noted: Glu 110 Meds noted: Protonix, Ferrous Sulfate, Lasix, electrolyte protocol -Monitor wt; noted daily wts ordered. -RD following.
[2020-05-08 16:29] VITALS: BP 129/62
--- NOTE | 2020-05-08 19:53 | NUR ---
RECEIVED REPORT, WILL ASSUME CARE OF PT, SITTING ON SIDE OF BED, DENIES ANY NEEDS AT THIS TIME, BED IS LOW, SRX1, CALL LIGHT IN REACH, WILL CONTINUE PLAN OF CARE
[2020-05-08 20:00] VITALS: BP 102/51
[2020-05-09] VITALS: BP 105/57
[2020-05-09 04:00] VITALS: BP 105/58
[2020-05-09 07:00] VITALS: BP 121/65
[2020-05-09 07:26] LABS: CALC OSMOLALITY 282 mosm/kg (275-300); CALCIUM 8.5 mg/dL (8.5-10.1); CHLORIDE - SERUM 98 mmol/L (98-107); CREATININE - SERUM 0.9 mg/dL (0.6-1.3); GLUCOSE 102 mg/dL (74-106); POTASSIUM - SERUM 3.6 mmol/L (3.5-5.1); SODIUM 138 mmol/L (136-145); UREA NITROGEN 31 mg/dL (7-18); eGFR NON AFRICAN AMERICAN 85 mL/min (90-120)
[2020-05-09 07:39] LABS: BASOPHILS 0.6 % (0-2); EOSINOPHILS 3.7 % (0-7); HEMATOCRIT 34.1 % (42.0-54.0); HEMOGLOBIN 9.7 g/dL (13.5-17.5); IMMATURE GRANULOCYTES 0.6 % (0-5); LYMPHOCYTES 23.9 % (15-50); MCH 22.1 pg (26.0-34.0); MCHC 28.4 g/dL (31.0-37.0); MCV 77.9 fL (80.0-100.0); NEUTROPHILS 43.2 % (40-80); PLATELET COUNT 98 10x3/uL (130-400); RBC 4.38 10x6/uL (4.20-6.10); RDW 21.5 % (11.5-14.5); WBC 4.7 10x3/uL (4.8-10.8)
[2020-05-09 07:53] LABS: CARBON DIOXIDE 40.7 mmol/L (21.0-32.0)
--- NOTE | 2020-05-09 08:45 | NUR ---
LEFT AC 20G IV LEAKING DC'D CATH INTACT. INSETED LEFT UPPER FA 20G IV ON FIRST ATTEMPT.
[2020-05-09 11:00] VITALS: BP 117/54
--- NOTE | 2020-05-09 14:35 | NUR ---
I have reviewed this patient and I concur with the Shift Assessment completed by the Licensed Practical Nurse today this shift.
[2020-05-09 15:00] VITALS: BP 124/67
--- NOTE | 2020-05-09 19:41 | NUR ---
REPORT RECIEVED AND ROUNDING COMPLETE. PATIENT LAYING IN BED IN LOW FOWLERS POSITION. STATES SHE HAS NO NEEDS AT THIS TIME. LEFT FOREARM PIV SALINE LOCKED. WEARING NASAL CANNULA WITH O2 AT 3L. NO DISTRESS NOTED. CALL LIGHT WITHIN REACH AND BED IN LOWEST LOCKED POSITION.
[2020-05-09 19:58] VITALS: BP 129/65
[2020-05-10] VITALS: BP 108/61
[2020-05-10 04:00] VITALS: BP 125/64
[2020-05-10] MEDS ORDERED: LASIX40 MG PO (08:50)
--- NOTE | 2020-05-10 10:45 | NUR ---
PT BEING DISCHARGED. FLU SHOT GIVEN. IV REMOVED AND TELEMETRY OFF.
[2020-05-10 10:52] VITALS: BP 125/62
== END 2020-05-10 11:52 | disposition home or self-care (01) | DRG 304 ==
LOC: D.ER 11:29 → D.M2 16:35
PROVIDERS: Family Medicine; ADMIT Family Medicine; ATTEND Family Medicine
DX: I16.0 Hypertensive urgency (principal); I50.23 Acute on chronic systolic (congestive) heart failure; I42.8 Other cardiomyopathies; I11.0 Hypertensive heart disease with heart failure; D64.9 Anemia, unspecified

== ENCOUNTER → 2020-10-27 10:37 | Outpatient (CLI) | payer OTHER ==
[2020-05-04 13:24] VITALS: BMI 34.1
[~2020-10-27 10:37] MED LIST changes: +COREG25 MG PO; +FERROUS SULFAT325 MG PO; +LASIX20 MG; +LASIX40 MG PO; +LIPITOR20 MG PO; +SINGULAIR10 MG PO; +SYMBICORT 16010.2 GM INH
== END | disposition home or self-care (01) ==
LOC: D.LAB 10:37
PROVIDERS: ATTEND Internal Medicine Pulmonary Disease
DX: Z11.52 Encounter for screening for COVID-19 (principal)